=== PATIENT | male | born 1985 | race Caucasian/White ===

== ENCOUNTER 2019-06-28 12:18 | Emergency (ER) | payer MEDICAID ==
[~2019-06-28] VITALS: Ht 180.3 cm; Wt 106.1 kg
[2019-06-28 12:28] VITALS: Ht 180.3 cm; Wt 106.1 kg
[2019-06-28 14:39] LABS: CALCIUM 9.5 mg/dL (8.5-10.1); CARBON DIOXIDE 29.6 mmol/L (21-32); CHLORIDE SERUM 98 mmol/L (98-107); CREATININE SERUM 1.2 mg/dL (0.7-1.3); GFR1 > 60 mL/min; GLUCOSE SERUM 112 mg/dL (74-106); SODIUM SERUM 133 mmol/L (136-145)
[2019-06-28 14:40] LABS: BASOPHIL % 0.3 % (0-2); PLATELET COUNT 290 x10^3mcL (130-400); RED CELL DISTRIBUTION WIDTH 12.3 % (11.5-14.5)
[2019-06-28 14:44] LABS: ALBUMIN 3.7 g/dL (3.4-5.0); ALKALINE PHOSPHATASE 80 U/L (46-116); ALT/SGPT 45 U/L (16-63); AST/SGOT 18 U/L (15-37); BILIRUBIN TOTAL 0.6 mg/dL (0.20-1.00); HDL CHOLESTEROL 40 mg/dL (40-60); LIPASE 103 IU/L (73-393); TRIGLYCERIDES 108 mg/dL (<150)
[2019-06-28 14:45] LABS: CHOLESTEROL 207 mg/dL (<200); CHOLESTEROL/HDL RATIO 5.2; TOTAL PROTEIN, SERUM 9.3 g/dL (6.4-8.2)
[2019-06-28 15:04] LABS: T3 TOTAL 0.89 ng/mL
[2019-06-28 15:08] LABS: FREE THYROXINE INDEX 2.8 ug/dL (1.4-4.5); T4(THYROXINE) 8.3 ug/dL (4.7-13.3)
[2019-06-28 15:59] LABS: microscopic required? YES; urine erythrocyte TRACE (NEGATIVE)
[2019-06-28 16:13] LABS: AMPHETAMINE QUAL UR NONE DETECTED (See below)
[2019-06-28 18:00] VITALS: BP 124/71
== END 2019-06-28 18:00 | disposition home or self-care (01) ==
LOC: ED 12:18
PROVIDERS: Specialist
DX: M54.9 Dorsalgia, unspecified (principal); R07.89 Other chest pain
CPT/HCPCS: 72072; 83880; 84439; 85378; 87804; J3010; J7030; Q0092

== ENCOUNTER 2019-07-16 13:35 | Emergency (ER) | payer MEDICAID ==
[~2019-07-16] VITALS: Ht 180.3 cm; Wt 106.1 kg
[2019-07-16 14:09] VITALS: Ht 180.3 cm; Wt 106.1 kg
[2019-07-16 15:18] VITALS: BP 130/80
== END 2019-07-16 15:19 | disposition home or self-care (01) ==
LOC: ED 13:35
DX: M54.6 Pain in thoracic spine (principal); R07.89 Other chest pain
CPT/HCPCS: J1885

== ENCOUNTER 2019-08-20 20:02 | Emergency (ER) | payer MEDICAID ==
[~2019-08-20] VITALS: Ht 180.3 cm; Wt 102.1 kg
[2019-08-20 20:31] VITALS: Ht 180.3 cm; Wt 102.1 kg
[2019-08-20 21:50] LABS: BASOPHIL % 0.4 % (0-2); PLATELET COUNT 375 x10^3mcL (130-400); RED CELL DISTRIBUTION WIDTH 12.9 % (11.5-14.5)
[2019-08-20 22:02] LABS: CALCIUM 9.1 mg/dL (8.5-10.1); CARBON DIOXIDE 27.8 mmol/L (21-32); CHLORIDE SERUM 102 mmol/L (98-107); CREATININE SERUM 1.1 mg/dL (0.7-1.3); GFR1 > 60 mL/min; GLUCOSE SERUM 108 mg/dL (74-106); SODIUM SERUM 138 mmol/L (136-145)
[2019-08-20 22:06] LABS: ALBUMIN 3.4 g/dL (3.4-5.0); ALKALINE PHOSPHATASE 105 U/L (46-116); ALT/SGPT 28 U/L (16-63); AST/SGOT 18 U/L (15-37); BILIRUBIN TOTAL 0.3 mg/dL (0.20-1.00); C REACTIVE PROTEIN 4.7 mg/dL (<=0.9)
[2019-08-20 22:07] LABS: TOTAL PROTEIN, SERUM 9.7 g/dL (6.4-8.2)
[2019-08-20 23:13] VITALS: BP 126/80
== END 2019-08-20 23:13 | disposition home or self-care (01) ==
LOC: ED 20:02
PROVIDERS: Emergency Medicine
DX: M54.6 Pain in thoracic spine (principal); R07.9 Chest pain, unspecified; R63.0 Anorexia; R63.4 Abnormal weight loss
CPT/HCPCS: 36415; 72072; J7512